=== PATIENT | male | born 2000 | race American Indian/Alaskan Native ===

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

== ENCOUNTER 2022-01-11 21:48 | Emergency (ER) | payer SELFPAY ==
[2022-01-11] MEDS ORDERED: Diphtheria,Pertussis(Acell),Tetanus Vaccine 0.5 ML Syringe IM ONE (21:53)
[2022-01-11 22:14] VITALS: BP 123/73; PULSE 114
[2022-01-11] MEDS: Lidocaine 1% 30 ML SDV INJECT ONE ×2 (22:20)
[2022-01-11 22:27] LABS: ANION GAP 13.1 mEq/L (7-13); CHLORIDE,CL 100 mmol/L (98-107); SODIUM,NA 136 mmol/L (136-145)
[2022-01-11] MEDS ORDERED: Bacitracin Oint 1 GM U/D Packet TOP ONE (22:50)
== END 2022-01-11 23:40 | disposition home or self-care (01) ==
LOC: DL.ED 21:48
DX: S91.311A Laceration without foreign body, right foot, initial encounter (principal); M54.2 Cervicalgia; Z23 Encounter for immunization; Y04.0XXA Assault by unarmed brawl or fight, initial encounter
CPT/HCPCS: 36415; 70450; 72125; 80053; 80307; 82150; 83690; 85025; 90471; 90715; 99283; 99284-25